=== PATIENT | female | born 2005 | race Hispanic/Latino ===

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

== ENCOUNTER 2025-03-01 22:03 | Observation (INO) | payer MEDICAID, SELFPAY ==
[2025-03-01 22:53] LABS: Bilirubin 1+ (Negative); Blood, Urine 50 (Negative); Clarity Clear (Clear); Glucose, Urine (Dipstick) Normal (Negative); Ketone, Urine 150 mg/dL (Negative); Leukocyte 25 (Negative); Nitrite Negative (Negative); Protein, Urine (Dipstick) 100 mg/dl (Neg-Trace); Specific Gravity, Urine 1.025 (1.005-1.030)
[2025-03-01] MEDS ORDERED: Ondansetron PF 4 MG/2 ML Vial ONE (22:57)
[2025-03-01 23:00] LABS: Pregnancy Test - Urine (BHCG) POSITIVE (Negative); Pregu Control Background? CLEAR/WHITE (CLR/WHITE); Pregu Control Bar Appear? YES (CONTROL BAR)
[2025-03-01 23:06] LABS: Bacteria/HPF None Seen HPF (None Seen); CAUTI Indications for Culture Pregnancy; RBC/HPF 0-3 HPF (0-3); WBC/HPF 0-3 HPF (0-3)
[2025-03-01 23:08] LABS: Urine Culture Reflex Yes Yes
[2025-03-01 23:26] LABS: Anion Gap 21 mmol/L (10-20); BUN (Urea Nitrogen) 9 mg/dL (7.0-18.7); Calc. Creatinine Clearance 0 mL/min (70-130); Calcium 10.6 mg/dL (7.8-10.44); Carbon Dioxide 30 mmol/L (22-29); Chloride 78 mmol/L (98-107); Estimated GFR 123; Glucose 110 mg/dL (70-105); Sodium 127 mmol/L (136-145)
[2025-03-01 23:30] LABS: Critical Call Chemistry NUR.MC25@2330; Potassium 2.1 mmol/L (3.5-5.1)
[2025-03-01] MEDS ORDERED: Potassium Chloride 20 MEQ TAB ONE (23:49)
[2025-03-02] MEDS ORDERED: Potassium Chloride 20 MEQ (100 mL) BAG ONE (00:18)
[2025-03-02] MEDS ORDERED: Acetaminophen 325 MG TAB PO PRN (01:24)
[2025-03-02] MEDS: Promethazine HCl 12.5 MG in Sodium Chloride 0.9% 50 ML IVPB SCH (03:27)
[2025-03-02] MEDS: Multivitamins, Adult 10 ML, Folic Acid 1 MG, Thiamine HCl 100 MG, Admixture Fee 1 EACH ... IV SCH (03:35)
[2025-03-02] MEDS: Sodium Chloride 0.9% 1,000 ML IV SCH (03:35)
[2025-03-02] MEDS: Pantoprazole 40 MG VIAL IVP SCH ×2 (03:35→10:27)
[2025-03-02] MEDS: Magnesium 2 GM/50 ML(in water) 2 GM in Premix 1 BAG IVPB SCH (03:45)
[2025-03-02 04:08] VITALS: BMI 24.5
[2025-03-02 04:44] LABS: #Basophils Less than 0.03 10x3/uL (0.0-0.2); #Eosinophils Less than 0.03 10x3/uL (0.0-0.5); #Monocytes 0.98 10x3/uL (0.0-1.1); #Neutrophils 8.19 10x3/uL (1.5-8.4); %Basophils 0.1 % (0.0-2.0); %Eosinophils 0.1 % (0.0-6.0); %Lymphocytes 19.2 % (18.0-47.0); %Monocytes 8.6 % (0.0-10.0); %Neutrophils 71.5 % (40.0-75.0); Hematocrit 36.2 % (34.9-44.5); Hemoglobin 13.4 g/dL (12.0-15.5); Mean Corpuscular Hemoglobin 30.4 pg (27.0-33.0); Mean Corpuscular Volume 82.1 fL (81.6-98.3); Mean Platelet Volume 12.2 fL (7.4-10.4); Platelet Count 206 10x3/uL (150-450); RBC Distribution Width 11.6 % (11.5-14.5); Red Blood Cell (RBC) Count 4.41 10x6/uL (3.90-5.03); White Blood Cell (WBC) Count 11.45 10x3/uL (3.5-10.5)
[2025-03-02 07:46] LABS: Amphetamine Negative (Negative); Barbiturates Screen Negative (Negative); Benzodiazepine Screen Negative (Negative); Cocaine Metabolite Screen Negative (Negative); Methadone Negative (Negative); Methamphetamine Negative (Negative); Opiate Screen Negative (Negative); Oxycodone Screen Negative (Negative); Phencyclidine (PCP) Negative (Negative); THC/Cannabinoid Screen PRELIM POSITIVE (Negative); Tricyclic Screen Negative (Negative)
[2025-03-02 09:12] LABS: Anion Gap 12 mmol/L (10-20); BUN (Urea Nitrogen) 4 mg/dL (7.0-18.7); Calc. Creatinine Clearance 174 mL/min (70-130); Calcium 8.4 mg/dL (7.8-10.44); Carbon Dioxide 27 mmol/L (22-29); Chloride 90 mmol/L (98-107); Critical Call Chemistry NUR.BW10@0902; Estimated GFR 139; Glucose 135 mg/dL (70-105); Magnesium 2.7 mg/dL (1.7-2.2); Phosphorus 1.8 mg/dL (2.5-4.5); Potassium 2.3 mmol/L (3.5-5.1); Sodium 127 mmol/L (136-145)
[2025-03-02 10:06] LABS: Anion Gap 11 mmol/L (10-20); BUN (Urea Nitrogen) 4 mg/dL (7.0-18.7); Calc. Creatinine Clearance 167 mL/min (70-130); Calcium 8.5 mg/dL (7.8-10.44); Carbon Dioxide 27 mmol/L (22-29); Chloride 93 mmol/L (98-107); Estimated GFR 138; Glucose 111 mg/dL (70-105); Sodium 129 mmol/L (136-145)
[2025-03-02 10:15] LABS: Critical Call Chemistry NUR.BW101012; Potassium 2.4 mmol/L (3.5-5.1)
[2025-03-02] MEDS: NS 0.9% w/ 40 MEQ KCL 1,000 ML IV SCH (10:26)
[2025-03-02] MEDS: Ondansetron PF 4 MG/2 ML Vial IVP PRN (10:27)
[2025-03-02] MEDS: Prenatal Vitamin 1 TAB PO SCH (10:27)
[2025-03-02] MEDS: pyridOXINE 50 MG (B6) TAB PO SCH (10:27)
[2025-03-02] MEDS: SODIUM CHLORIDE IVPB SCH (13:19)
[2025-03-02] MEDS: SODIUM PHOSPHATE IVPB SCH (13:19)
[2025-03-02] MEDS: ADMIXTURE FEE IVPB SCH (13:19)
[2025-03-02 15:29] LABS: Anion Gap 13 mmol/L (10-20); BUN (Urea Nitrogen) Less than 4 mg/dL (7.0-18.7); Calc. Creatinine Clearance 209 mL/min (70-130); Calcium 7.9 mg/dL (7.8-10.44); Carbon Dioxide 26 mmol/L (22-29); Chloride 95 mmol/L (98-107); Estimated GFR 145; Glucose 86 mg/dL (70-105); Sodium 132 mmol/L (136-145)
[2025-03-02 16:26] LABS: Critical Call Chemistry NUR.EW10@1626/NS1; Potassium 2.4 mmol/L (3.5-5.1)
[2025-03-02] MEDS: Potassium Chloride 20 MEQ TAB PO SCH (19:28)
[2025-03-02] MEDS: Enoxaparin 40 MG (0.4 mL) SYRINGE SC SCH (22:00)
[2025-03-03] MEDS: Melatonin 3 MG TAB PO SCH (03:01)
[2025-03-03 08:13] LABS: Anion Gap 12 mmol/L (10-20); BUN (Urea Nitrogen) Less than 4 mg/dL (7.0-18.7); Calc. Creatinine Clearance 186 mL/min (70-130); Calcium 8.2 mg/dL (7.8-10.44); Carbon Dioxide 24 mmol/L (22-29); Chloride 98 mmol/L (98-107); Estimated GFR 141; Glucose 115 mg/dL (70-105); Sodium 131 mmol/L (136-145)
[2025-03-03 08:29] LABS: Critical Call Chemistry NUR.HAKG2@0825; Potassium 2.6 mmol/L (3.5-5.1)
[2025-03-03] MEDS: Potassium Chloride 20 MEQ TAB PO SCH (09:22)
[2025-03-03 13:53] LABS: Anion Gap 11 mmol/L (10-20); BUN (Urea Nitrogen) Less than 4 mg/dL (7.0-18.7); Calc. Creatinine Clearance 199 mL/min (70-130); Calcium 8.6 mg/dL (7.8-10.44); Carbon Dioxide 25 mmol/L (22-29); Chloride 98 mmol/L (98-107); Estimated GFR 144; Glucose 85 mg/dL (70-105); Potassium 3.3 mmol/L (3.5-5.1); Sodium 131 mmol/L (136-145)
[2025-03-03 15:18] VITALS: BP 98/65; TEMP 97.9
== END 2025-03-03 16:02 | disposition home or self-care (01) ==
LOC: CSHERS 22:03 → CSHTELE 03-02 01:24
PROVIDERS: ADMIT Student in an Organized Health Care Education/Training Program; ATTEND Hospitalist
DX: O21.1 Hyperemesis gravidarum with metabolic disturbance (principal); Z3A.12 12 weeks gestation of pregnancy; Z79.899 Other long term (current) drug therapy
CPT/HCPCS: 36415; 76801; 80048; 80306; 81001; 81025; 82010; 83735; 84100; 84702; 85025; 87086; 96372; 96374; 96375; 96376; G0378; J1650; J2405; J2470; J2550; J3411; J3475; J3480; J7042; J7050

== ENCOUNTER 2025-07-29 08:27 | Day surgery (SDC) | payer SELFPAY ==
[2025-07-29 09:01] VITALS: BMI 27.3
[2025-07-29 11:26] LABS: Glucose, Urine (Dipstick) Normal (Negative); Leukocyte 500 (Negative); Protein, Urine (Dipstick) 30 mg/dl (Neg-Trace); Specific Gravity, Urine 1.020 (1.005-1.030)
[2025-07-29 11:36] LABS: Bacteria/HPF 4+ HPF (None Seen); CAUTI Indications for Culture Pregnancy; RBC/HPF 0-3 HPF (0-3); WBC/HPF Greater Than 50 HPF (0-3)
[2025-07-29 11:37] LABS: Urine Culture Reflex Yes Yes
== END 2025-07-29 12:01 | disposition home health service (06) ==
LOC: CSHLD/OP 08:27
PROVIDERS: ATTEND Student in an Organized Health Care Education/Training Program
DX: O47.03 False labor before 37 completed weeks of gestation, third trimester (principal); Z3A.33 33 weeks gestation of pregnancy
CPT/HCPCS: 81001; 87086; 87480; 87510; 87660; 99285

== ENCOUNTER 2025-08-19 06:07 | Inpatient (IN) | payer MEDICAID ==
[2025-08-19 06:37] VITALS: BMI 26.5
[2025-08-19] MEDS ORDERED: hydrALAZINE 20 MG/ML VIAL SLOW IVP PRN ×2 (06:47→16:06)
[2025-08-19 07:24] LABS: Glucose, Urine (Dipstick) Normal (Negative); Leukocyte 500 (Negative); Protein, Urine (Dipstick) 30 mg/dl (Neg-Trace); Specific Gravity, Urine 1.025 (1.005-1.030)
[2025-08-19 07:31] LABS: Bacteria/HPF 3+ HPF (None Seen); CAUTI Indications for Culture Pregnancy; RBC/HPF 0-3 HPF (0-3)
[2025-08-19 07:34] LABS: Urine Culture Reflex Yes Yes
[2025-08-19 07:48] LABS: Fetal Membranes Rupture No Membranes Rupture (No Rupture)
[2025-08-19] MEDS: metroNIDAZOLE 500 MG TAB PO SCH ×2 (09:36→22:28)
[2025-08-19] MEDS: Cephalexin 500 MG CAP PO SCH (11:56)
[2025-08-19] MEDS ORDERED: Carboprost 250 MCG/ML AMP IM PRN (16:06)
[2025-08-19] MEDS ORDERED: Diphenoxylate HCl/Atropine Tablet PO PRN (16:06)
[2025-08-19] MEDS ORDERED: Methylergonovine 0.2 MG/ML VIAL IM PRN (16:06)
[2025-08-19] MEDS ORDERED: Ondansetron PF 4 MG/2 ML Vial IVP PRN (16:06)
[2025-08-19] MEDS ORDERED: Lidocaine 1% (PF) 30 ML VIAL SC PRN (16:06)
[2025-08-19] MEDS ORDERED: Tranexamic Acid 1,000 MG/10 ML VIAL IVP PRN (16:06)
[2025-08-19] MEDS ORDERED: Oxytocin 30 units/NS 500 ML 500 ML IV SCH ×2 (16:15)
[2025-08-19 16:20] LABS: Hematocrit 33.0 % (34.9-44.5); Hemoglobin 10.7 g/dL (12.0-15.5); Mean Corpuscular Hemoglobin 27.8 pg (27.0-33.0); Mean Corpuscular Volume 85.7 fL (81.6-98.3); Platelet Count 245 10x3/uL (150-450); Red Blood Cell (RBC) Count 3.85 10x6/uL (3.90-5.03); White Blood Cell (WBC) Count 8.98 10x3/uL (3.5-10.5)
[2025-08-19 17:01] LABS: Syphilis Antibody Index 0.05 S/CO (<1.00 Non-Reactive)
[2025-08-19 17:02] LABS: Hep B Surf Ag - L&D Non-Reactive S/CO (NonReactive)
[2025-08-19 19:06] LABS: Cocaine Metabolite Screen Negative (Negative); THC/Cannabinoid Screen PRELIM POSITIVE (Negative); Tricyclic Screen Negative (Negative)
[2025-08-19] MEDS: Acetaminophen 500 MG TAB PO SCH (19:36)
[2025-08-20 03:03] LABS: Chlamydia by PCR, Vaginal Swab DETECTED (NotDetected)
[2025-08-20 04:43] LABS: GC by PCR, Vaginal Swab *Indeterminate (NotDetected)
[2025-08-20] MEDS ORDERED: cefTRIAXone (ROCEPHIN) 500 MG VIAL IM SCH (06:30)
[2025-08-20] MEDS: cefTRIAXone (ROCEPHIN) 1 GM VIAL IM SCH (06:45)
[2025-08-20] MEDS: Azithromycin 250 MG TAB PO SCH (06:45)
[2025-08-20] MEDS: Lidocaine 1% PF 5 ML VIAL FS SCH (06:45)
== END 2025-08-20 10:56 | disposition home or self-care (01) | DRG 832 ==
LOC: CSHLD/OP 06:07 → CSHLD 16:23
PROVIDERS: ADMIT Family Medicine; ATTEND Family Medicine
PROC: 4A1HXCZ Monitoring of Products of Conception, Cardiac Rate, External Approach (ICD-10-PCS; principal; 2025-08-19)
DX: O36.5930 Maternal care for other known or suspected poor fetal growth, third trimester, not applicable or unspecified (principal); O99.323 Drug use complicating pregnancy, third trimester; Z3A.36 36 weeks gestation of pregnancy; O76 Abnormality in fetal heart rate and rhythm complicating labor and delivery
CPT/HCPCS: 76815; 76819; 80306; 81001; 84112; 85027; 86780; 86850; 86900; 86901; 87086; 87340; 87480; 87491; 87510; 87591; 87660; 99285; J0696